=== PATIENT | female | born 1965 | race Caucasian/White ===

== ENCOUNTER 2017-10-16 06:50 | Day surgery (SDC) | payer OTHER ==
[2017-10-15 15:44] VITALS: BMI 35.0
[~2017-10-16] VITALS: Ht 157.5 cm; Wt 88.6 kg
[~2017-10-16 06:50] MED LIST: ASPI81TA28 PO; ATOR-22 PO; CEFAZOLIN 2000MG IV PUSH 10 ML IV SCH; GLC/500 PO; LACTATED RINGER'S 1000ML 1,000 ML IV SCH; LAMO200T38 PO; LEVO125T5 PO; LISI-729 PO; MULT-506 PO; OMEG10007 PO; RISP2TAB22 PO
[2017-10-16 07:08] VITALS: BP 128/86; PULSE 85; TEMP 36.8; O2SAT 96; Ht 157.5 cm; Wt 88.6 kg
[2017-10-16] MEDS ORDERED: LIDOCAINE HCL 2% 2 ML VIAL (20MG/ML) ONE (07:31)
[2017-10-16] MEDS ORDERED: PROPOFOL IV EMULSION 10 MG/ML 20 ML VIAL IV ONE (07:31)
[2017-10-16] MEDS ORDERED: ONDANSETRON INJ 2 MG/ML 2 ML VIAL ONE (07:31)
[2017-10-16] MEDS ORDERED: FENTANYL CITRATE INJ 50 MCG/1 ML 2 ML VIAL ONE (07:32)
[2017-10-16] MEDS ORDERED: MIDAZOLAM HCL 1 MG/ML 2ML VIAL ONE (07:32)
[2017-10-16] MEDS ORDERED: ATROPINE SULFATE 0.1 MG/ML 5ML SYR IV PRN (08:00)
[2017-10-16] MEDS ORDERED: HYDROmorphone INJ 2 MG/ML SYR/VIAL IV PRN (08:00)
[2017-10-16] MEDS ORDERED: MEPERIDINE HCL 25 MG/ML CARP IV PRN (08:00)
[2017-10-16] MEDS ORDERED: LABETALOL HCL IV 5 MG/ML 20ML IV PRN (08:00)
[2017-10-16] MEDS ORDERED: FENTANYL CITRATE INJ 50 MCG/1 ML 2 ML VIAL IV PRN (08:00)
[2017-10-16] MEDS ORDERED: ONDANSETRON INJ 2 MG/ML 2 ML VIAL IV PRN (08:00)
[2017-10-16] MEDS ORDERED: NALOXONE HCL 0.4 MG/1 ML VIAL/CARP IV PRN (08:00)
[2017-10-16] MEDS ORDERED: EpHEDrine SULFATE INJ 50 MG/ML AMP IV PRN (08:00)
[2017-10-16] MEDS ORDERED: FLUMAZENIL 0.1 MG/1 ML 10 ML VIAL IV PRN (08:00)
[2017-10-16] MEDS ORDERED: PHENYLEPHRINE 100MCG/ML 5ML SYR IV PRN (08:00)
--- NOTE | 2017-10-16 08:42 | History & Physical Bridge Note ---
H&P Re-Evaluation Bridge Note: I have examined the patient, reviewed the History & Physical and in the interval since the performance of the History & Physical I have noted the following changes of clinical significance: No changes noted
[2017-10-16] MEDS ORDERED: PHENYLEPHRINE 100MCG/ML 5ML SYR ONE (09:32)
[2017-10-16] MEDS ORDERED: KETOROLAC TROMETHAMINE 30 MG/ML VIAL ONE (09:32)
[2017-10-16] MEDS ORDERED: BELLADONNA/OPIUM SUPP 60 MG SUPP PR ONE ×2 (09:33→11:09)
--- NOTE | 2017-10-16 10:24 | [facility] Operative Report ---
Operative Report Operative Date Oct 16, 2017. Pre-Operative Diagnosis Right Kidney Stone Post-Operative Diagnosis Right Kidney Stone Procedure(s) Performed Cystoscopy, Right Ureteroscopy Laser Lithotripsy Basket Stone Extraction; Stent Placement Surgeon Dr. Alicia Caputo [employer] Mechanical Designer Surgeon(s) none Estimated Blood Loss 2 cc Findings radio-opaque right renal pelvis stone Fluids 800mL Specimens A: Right Renal Stone for Chemical Analysis Drains 6 fr 24 centimeter double J stent Anesthesia LMA Complication(s) None Disposition Recovery Room / PACU Indications partially obstructing large right kidney stone Description of Procedure Patient was given general LMA anesthesia and placed in lithotomy position. Her genitals were prepped and draped in sterile fashion. Time out held with team. I placed a 21 fr rigid cystoscope to bladder. The urethra is unremarkable. The UOs are normal slit shape. I placed a stiff wire up right ureter and watched it pass the radio-opaque renal pelvis upj stone. I used a dual lumen to calibrate the UO and place a second wire. I placed a 12/ 14 fr 28 centimeter ureteral access sheath easily. I placed the flex ureteroscope into the kidney. I used the 200 micron holmium laser fiber to fragment the khan crystalline stone into scores of pieces using the dusting setting. I then used a 2.4 fr zero tip basket to remove about a dozen pieces. The remainder are tiny and should pass easily. I placed a 24 centimeter 6 Fr double J stent easily. There is brisk efflux after placement. I left bladder empty and concluded case. I placed a belladonna and opium suppository for post- op pain. She transferred to recovery under my escort, in stable condition. Plan: Home today Pyridium for dysuria x 3 days flomax daily oral pain meds as needed ASA 3 clean contaminated case 11 seconds fluoro ancef antibiotic environmental science technician I attest to the content of the Intraoperative Record and any orders documented therein. Any exceptions are noted below.
--- NOTE | 2017-10-16 10:26 | Discharge Instructions ---
Discharge Instructions Date of Service Oct 16, 2017. Admission Reason for Admission: Right Kidney Stone Discharge Discharge Diagnosis / Problem: right kidney stones Discharge Goals Goal(s): Decrease discomfort, Improve disease control Activity Recommendations Activity Limitations: resume your previous activity Lifting Limitations: none Exercise/Sports Limitations: none May Resume Sexual Activity: when tolerated Shower/Bathe: no limitations Driving or Machine Use: resume 1 day after discharge . Instructions / Follow-Up Instructions / Follow-Up stent removal in one week in [facility] office Current Hospital Diet Patient's current hospital diet: Discharge Diet Recommended Diet: Regular Diet Fluid Restriction: None Procedures Procedures Performed: Cystoscopy, Right Ureteroscopy Laser Lithotripsy Basket Stone Extraction; Stent Placement Pending Studies Studies pending at discharge: yes List of pending studies: stone analysis Medical Emergencies . Who to Call and When: Medical Emergencies: If at any time you feel your situation is an emergency, please call 911 immediately. . Non-Emergent Contact Non-Emergency issues call your: Urologist ([phone]) Call Non-Emergent contact if: temperature is above 100.5, your pain is not controlled . . "Provider Documentation" section prepared by Rosemary Caputo. . VTE Core Measure Inpt VTE Proph given/why not?: SCD's [place] Drug Monitoring Program Search Results: patient reviewed within database, no issues identified
--- NOTE | 2017-10-16 10:40 | DIAGNOSTIC IMAGING REPORT ---
KUB CLINICAL HISTORY: 52 years-old Female presenting with RT CYSTO/LASER/STENT. TECHNIQUE: 5 fluoroscopic spot image(s) obtained as part of an intraoperative procedure. COMPARISON: None. FINDINGS/IMPRESSION: A guidewire was introduced into the right renal collecting system as well as a catheter and second guidewire. Subsequently, a right ureteral stent was placed. Please see surgical report for further details. Fluoroscopy dosage (Dose area product (DAP) mGy.cm^2): Not available. Fluoroscopy time: 11 seconds. Number of fluoroscopic spot images: 5. Electronically signed by: Orlando Osei M.D. 10/16/2017 10:38 AM Dictated Date/Time: 10/16/2017 10:34 AM
--- NOTE | 2017-10-16 10:46 | Anesthesiology Progress Note ---
Anesthesia Post Op Note Date & Time Oct 16, 2017 at 10:46 Vital Signs Pain Intensity: 0 Vital Signs Past 12 Hours Date Time Temp Pulse Resp B/P (MAP) Pulse Ox O2 Delivery O2 Flow Rate FiO2 10/16/17 10:40 84 19 120/67 95 Room Air 10/16/17 10:30 90 19 119/73 100 Oxymask 10 10/16/17 10:20 93 17 114/76 100 Oxymask 10/16/17 10:12 36.9 97 16 113/77 98 Oxymask 10 10/16/17 07:08 36.8 85 18 128/86 (100) 96 Room Air Notes Mental Status: alert / awake / arousable, participated in evaluation Pt Amnestic to Procedure: Yes Nausea / Vomiting: adequately controlled Pain: adequately controlled Airway Patency, RR, SpO2: stable & adequate BP & HR: stable & adequate Hydration State: stable & adequate Anesthetic Complications: no major complications apparent
[2017-10-16 10:50] VITALS: BP 124/68; PULSE 77; TEMP 37.1; O2SAT 97
[2017-10-16 11:20] VITALS: BP 128/77; PULSE 73; O2SAT 97
== END 2017-10-16 11:45 | disposition home or self-care (01) ==
LOC: C.ACU 06:50
PROVIDERS: ATTEND Urology
DX: N20.0 Calculus of kidney (principal); E03.9 Hypothyroidism, unspecified; Z85.3 Personal history of malignant neoplasm of breast; E78.6 Lipoprotein deficiency; E31.9 Polyglandular dysfunction, unspecified; E11.9 Type 2 diabetes mellitus without complications; E78.2 Mixed hyperlipidemia; Z98.51 Tubal ligation status; Z80.0 Family history of malignant neoplasm of digestive organs; Z82.49 Family history of ischemic heart disease and other diseases of the circulatory system; E66.9 Obesity, unspecified; R06.83 Snoring; I10 Essential (primary) hypertension; Z87.442 Personal history of urinary calculi; K76.0 Fatty (change of) liver, not elsewhere classified